=== PATIENT | female | born 2000 | race Caucasian/White ===

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

== ENCOUNTER 2022-01-27 21:45 | Emergency (ER) | payer OTHER ==
[2022-01-27 21:55] VITALS: BP 131/78; PULSE 108; TEMP 98.5; BMI 27.3
[2022-01-27] MEDS ORDERED: ASPIRIN 81 MG CHEWABLE TABLETS PO ONE (22:54)
[2022-01-27] MEDS ORDERED: ASPIRIN 81 MG CHEWABLE TABLETS ONE (23:48)
[2022-01-28 00:05] LABS: BASO % 0.7 % (0-2.0); EOS % 8.1 % (0-4.5); HEMATOCRIT 36.2 % (32.4-45.2); HEMOGLOBIN 12.5 GM/dL (10.7-15.3); LYMPH % 26.9 % (8-40); MCH 29.9 pg (25.7-33.7); MCHC 34.5 g/dl (32.0-36.0); MEAN CELL VOLUME 86.7 fl (80-96); MEAN PLT VOLUME 7.7 fl (7.5-11.1); MONO % 5.5 % (3.8-10.2); NEUT % 58.8 % (42.8-82.8); PLATELET COUNT 332 10^3/uL (134-434); RBC 4.17 M/mm3 (3.60-5.2); RDW 12.7 % (11.6-15.6); WHITE BLOOD COUNT 10.2 K/mm3 (4.0-10.0)
[2022-01-28 00:14] LABS: INR 1.03 (0.83-1.09); PROTHROMBIN TIME (PATIENT) 11.8 SEC (9.7-13.0)
[2022-01-28 00:17] LABS: ACTIVATED PTT 31.9 SECONDS (25.2-36.5)
[2022-01-28 00:29] LABS: CALCIUM 9.3 mg/dL (8.5-10.1)
[2022-01-28 00:30] LABS: ALBUMIN 4.2 g/dl (3.4-5.0); BLOOD UREA NITROGEN 6.5 mg/dL (7-18); MAGNESIUM 2.6 mg/dL (1.8-2.4)
[2022-01-28 00:33] LABS: CREATININE 0.7 mg/dL (0.55-1.3)
[2022-01-28 00:34] LABS: BILIRUBIN,TOTAL 0.3 mg/dL (0.2-1); TOT PROT 7.5 g/dl (6.4-8.2)
[2022-01-28 01:38] LABS: PH,URINE 7.5 (5.0-8.0); URINE APPEARANCE TURBID; URINE BILIRUBIN NEGATIVE (NEGATIVE); URINE COLOR YELLOW; URINE GLUCOSE (UA) NEGATIVE (NEGATIVE); URINE KETONE NEGATIVE (NEGATIVE); URINE LEUK ESTERASE NEGATIVE (NEGATIVE); URINE NITRITE NEGATIVE (NEGATIVE); URINE PROTEIN NEGATIVE (NEGATIVE); URINE UROBILINOGEN 0.2 mg/dL (0.2-1.0)
[2022-01-28 01:41] LABS: HCG,QUALITATIVE URINE Negative
== END 2022-01-28 02:09 | disposition home or self-care (01) ==
LOC: JER 21:45
DX: J98.01 Acute bronchospasm (principal)
CPT/HCPCS: 36415; 71046-TC-FY; 80053; 81003; 83735; 84484; 84703; 85025; 85379; 85610; 85730; 93005; 93010; 99285-25

== ENCOUNTER 2022-05-26 15:31 | Emergency (ER) | payer OTHER ==
[2022-05-26 15:45] VITALS: BP 104/58; PULSE 75; RESP 18; TEMP 98.1; BMI 27.3
== END 2022-05-26 18:06 | disposition home or self-care (01) ==
LOC: JERFT 15:31
DX: S09.90XA Unspecified injury of head, initial encounter (principal); W22.8XXA Striking against or struck by other objects, initial encounter
CPT/HCPCS: 99283-25